=== PATIENT | female | born 1985 | race Caucasian/White ===

== ENCOUNTER 2023-04-04 12:26 | Emergency (ER) | payer MEDICAID, OTHER ==
[~2023-04-04] VITALS: Ht 160 cm; Wt 58.0 kg
[~2023-04-04 12:26] MED LIST: DIOVAN 320 MG; DOCUSATE 100 MG; FERROUS SULFATE; HYDRALAZINE 50 MG; NORVASC 10 MG; PRILOSEC 20 MG; RAMIPRIL 20 MG; RENAGEL 800 MG
[2023-04-04 12:34] VITALS: O2SAT 100
[2023-04-04 15:00] VITALS: BP 145/84; PULSE 67; RESP 20; TEMP 98.6
== END 2023-04-04 15:02 | disposition home or self-care (01) ==
LOC: ER 12:26
DX: R76.11 Nonspecific reaction to tuberculin skin test without active tuberculosis (principal); N19 Unspecified kidney failure; Z88.8 Allergy status to other drugs, medicaments and biological substances; Z88.1 Allergy status to other antibiotic agents; Z79.899 Other long term (current) drug therapy
CPT/HCPCS: 71046; 99283